=== PATIENT | female | born 1965 | race Caucasian/White ===

== ENCOUNTER 2022-07-25 07:20 | Day surgery (SDC) | payer OTHER ==
[2022-06-21 13:20] VITALS: BMI 33.6
[2022-07-25] MEDS ORDERED: VANCOMYCIN 1,000 MG VIAL (RESTRICTED TO ID ONLY) ONE (07:45)
[2022-07-25] MEDS ORDERED: ceFAZolin SODIUM 1 GM VIAL ONE (07:45)
[2022-07-25] MEDS ORDERED: CELECOXIB 200 MG CAPSULE ONE (08:14)
[2022-07-25] MEDS ORDERED: MIDAZOLAM HCL 2 MG/2 ML SINGLE DOSE VIAL ONE (08:26)
[2022-07-25] MEDS ORDERED: PROPOFOL 60 ML ONE (08:26)
[2022-07-25] MEDS ORDERED: BUPIVACAINE HCL 50 ML ONE ×2 (08:29→09:15)
[2022-07-25] MEDS ORDERED: BUPIVACAINE HCL/PF 0.5% (5 MG/ML) 30 ML VIAL IJ ONE (08:32)
[2022-07-25] MEDS ORDERED: BUPIVACAINE LIPOSOME/PF (EXPAREL) 266 MG/20 ML VIAL ONE (08:32)
[2022-07-25] MEDS ORDERED: ONDANSETRON 4 MG/2 ML VIAL IVPUSH PRN (08:42)
[2022-07-25] MEDS ORDERED: LACTATED RINGERS SOLUTION 1,000 ML IV SCH ×2 (08:45→10:15)
[2022-07-25] MEDS ORDERED: TRANEXAMIC ACID 1000 MG/10 ML VIAL IVPUSH ONE (09:00)
[2022-07-25] MEDS ORDERED: CELECOXIB 200 MG CAPSULE PO ONE (09:00)
[2022-07-25] MEDS ORDERED: CEFAZOLIN 2 GM in DEXTROSE 5%-WATER - 50 ML IVPB ONE (09:00)
[2022-07-25] MEDS ORDERED: PROPOFOL 40 ML ONE (11:21)
[2022-07-25] MEDS: CEFAZOLIN SODIUM 2 GM in DEXTROSE 5%-WATER 100 ML IVPB SCH (18:29)
[2022-07-25] MEDS: oxyCODONE HCL 5 MG TABLET PO PRN (21:23)
[2022-07-25] MEDS: SENNOSIDES/DOCUSATE COMBO (SENNA PLUS) TABLET (UD) PO SCH (21:24)
[2022-07-25] MEDS ORDERED: ROSUVASTATIN CA 20 MG TABLET PO SCH (22:00)
[2022-07-26 00:44] VITALS: RESP 18
[2022-07-26] MEDS: CEFAZOLIN SODIUM 2 GM in DEXTROSE 5%-WATER 100 ML IVPB SCH (02:00)
[2022-07-26] MEDS: oxyCODONE HCL 5 MG TABLET PO PRN ×3 (06:00→15:46)
[2022-07-26] MEDS ORDERED: ASPIRIN 325 MG TABLET PO SCH (08:00)
[2022-07-26 09:29] LABS: HEMATOCRIT 30.8 % (32.4-45.2); HEMOGLOBIN 10.8 GM/dL (10.7-15.3); MCH 30.1 pg (25.7-33.7); MEAN PLT VOLUME 9.8 fl (7.5-11.1); PLATELET COUNT 205 10^3/uL (134-434); RBC 3.58 M/mm3 (3.60-5.2); RDW 13.7 % (11.6-15.6); WHITE BLOOD COUNT 6.4 K/mm3 (4.0-10.0)
[2022-07-26 09:48] VITALS: BP 149/74; PULSE 67; TEMP 98.8
[2022-07-26] MEDS ORDERED: PANTOPRAZOLE 40 MG TABLET PO SCH (10:00)
[2022-07-26] MEDS ORDERED: MULTIVITAMINS (DAILY MVI) TABLET (FP) PO SCH (10:00)
[2022-07-26] MEDS: SENNOSIDES/DOCUSATE COMBO (SENNA PLUS) TABLET (UD) PO SCH (10:06)
== END 2022-07-26 16:07 | disposition home health service (06) ==
LOC: FASUSAT 07:20 → FM/S 16:07 → FASUSAT 07-26 16:07
PROVIDERS: ATTEND Orthopaedic Surgery
PROC: 8E0Y0CZ Robotic Assisted Procedure of Lower Extremity, Open Approach (ICD-10-PCS; 2022-07-25)
PROC: 0SRC0JA Replacement of Right Knee Joint with Synthetic Substitute, Uncemented, Open Approach (ICD-10-PCS; principal; 2022-07-25 10:30)
DX: M17.11 Unilateral primary osteoarthritis, right knee (principal)
CPT/HCPCS: 20985; 27447; C1776; S2900; 36415; 73560-TC-RT-FY; 85027; 94760; 97010-GP; 97116-GP; 97162-GP; C1713

== ENCOUNTER 2022-09-05 06:10 | Day surgery (SDC) | payer OTHER ==
[2022-09-01 15:57] VITALS: BMI 30.9
[2022-09-05] MEDS ORDERED: PROPOFOL 20 ML ONE (08:14)
[2022-09-05] MEDS ORDERED: oxyCODONE HCL 5 MG TABLET PO PRN (08:28)
[2022-09-05] MEDS ORDERED: ONDANSETRON 4 MG/2 ML VIAL IVPUSH PRN (08:28)
[2022-09-05] MEDS ORDERED: ACETAMINOPHEN 500 MG TABLET (FP) PO PRN (08:28)
[2022-09-05] MEDS ORDERED: LACTATED RINGERS SOLUTION 1,000 ML IV SCH (08:30)
[2022-09-05 08:55] VITALS: RESP 18
[2022-09-05] MEDS ORDERED: oxyCODONE HCL 5 MG TABLET ONE (08:59)
[2022-09-05 09:05] VITALS: PULSE 62; TEMP 97.4
[2022-09-05 09:29] VITALS: BP 142/78
== END 2022-09-05 09:54 | disposition home or self-care (01) ==
LOC: FASU 06:10
PROVIDERS: ATTEND Orthopaedic Surgery
PROC: 0SSCXZZ Reposition Right Knee Joint, External Approach (ICD-10-PCS; principal; 2022-09-05 08:17)
DX: M25.661 Stiffness of right knee, not elsewhere classified (principal); Z96.651 Presence of right artificial knee joint
CPT/HCPCS: 94760